=== PATIENT | female | born 1940 | race Caucasian/White ===

== ENCOUNTER 2017-12-01 23:03 | Emergency (ER) | payer MEDICARE, BC ==
[~2017-12-01] VITALS: Ht 152.4 cm; Wt 59.0 kg
--- NOTE | 2017-12-01 23:14 | Emergency Room Report ---
History of Present Illness General Chief Complaint: Lower Extremity Injury Source: Patient, EMS Present Illness HPI This a 76-year-old female with multiple medical problem including CVA, breast cancer, high blood pressure. She presents with chief complaint of right leg pain status post fall. She was walking on the carpet and slipped and fell onto the right side. Unable to get up. Unable to bear weight. Pain is 10 out of 10. Per EMS there is deformity. No nausea no vomiting. No head injury. No syncopal episode. This was mechanical fall. Worse with movement. Better with rest. Allergies: Coded Allergies: CIPROFLOXACIN (Verified Allergy, Unknown, 12/01/17) Patient History Past Medical History: see triage record, old chart reviewed Past Surgical History: other Pertinent Family History: none Social History: Denies: smoking Now: No Immunizations: other Reviewed Nursing Documentation: PMH: Agreed; PSxH: Agreed Nursing Documentation-PMH Past Medical History: No History, Except For Hx Asthma: Yes Hx Cerebrovascular Accident: Yes Review of Systems Eye: Denies: eye pain, blurred vision ENT: Denies: ear pain, nose congestion, throat swelling Respiratory: Denies: cough, shortness of breath Cardiovascular: Denies: chest pain, palpitations Gastrointestinal: Denies: abdominal pain, diarrhea, nausea, vomiting Musculoskeletal: Reports: joint pain, joint swelling, muscle pain; Denies: back pain Skin: Denies: rash Neurological: Denies: headache, numbness Endocrine: Denies: increased thirst, increased urine Hematologic/Lymphatic: Denies: easy bruising All Other Systems: negative except mentioned in HPI Physical Exam Vital Signs Date Time Temp Pulse Resp B/P (MAP) Pulse Ox O2 Delivery O2 Flow Rate FiO2 12/01/17 23:07 98.0 70 16 117/65 98 Room Air 98.1 vitals normal Sp02 EP Interpretation: reviewed, normal General Appearance: well appearing, no apparent distress, alert Head: normocephalic, atraumatic Eyes: bilateral eye PERRL, bilateral eye EOMI ENT: hearing grossly normal, normal pharynx Neck: full range of motion, supple, no meningismus Respiratory: chest non-tender, lungs clear, normal breath sounds Cardiovascular #1: regular rate, rhythm, no murmur Gastrointestinal: normal bowel sounds, non tender, no mass, no organomegaly, no bruit, non-distended Musculoskeletal: back normal, other - Right femur with deformity to the proximal and midshaft. There is edema to the thigh. Knee is nontender. Ankle nontender. Pulses normal. Neurologic: alert, oriented x3 Psychiatric: mood/affect normal Skin: warm/dry Procedures Splinting Splinting : Consent: Verbal Location: right femur Hand-Made Type: plaster Splint: posterior long Pre-Proc Neuro Vasc Exam: normal Post-Proc Neuro Vasc Exam: normal Patient Tolerated: Well Complications: None Medical Decision Making Diagnostic Impression: Primary Impression: Right femoral shaft fracture Qualified Codes: S72.351A - Displaced comminuted fracture of shaft of right femur, initial encounter for closed fracture Additional Impressions: UTI (urinary tract infection) Qualified Codes: N30.00 - Acute cystitis without hematuria CKD (chronic kidney disease) Qualified Codes: N18.9 - Chronic kidney disease, unspecified ER Course Patient presents with a fall with proximal femur fracture. She will need surgery. Worisome for potential pathological fracture. Patient is otherwise stable with well pain controlled. I discussed the case with Dr. Brina Flores who is out of town. She asked that I called the [facility] for admission. I spoke with Dr. Casa Farah who accepted the patient for transfer to [facility]. Lab Results Impression labs unremarkable EKG Diagnostic Results Rate: normal Rhythm: NSR ST Segments: no acute changes Rhythm Strip Diag. Results Rhythm Strip Time: 01:21 EP Interpretation: yes Rate: 66 Rhythm: NSR, no PVC's, no ectopy Chest X-Ray Diagnostic Results Chest X-Ray Diagnostic Results : Chest X-Ray Ordered: Yes # of Views/Limited/Complete: 1 View Indication: Shortness of Breath EP Interpretation: Yes Interpretation: no effusion, no pneumothorax, no acute cardiopulmonary disease, other - atelectasis left lower lower lobe Impression: Other - Atelectasis Electronically Signed by: Eric Rowe MD Other X-Ray Diagnostic Results Other X-Ray Diagnostic Results : X-Ray ordered: right femur x-rays # of Views/Limited Vs Complete: 2 View Indication: Pain EP Interpretation: Yes Interpretation: no dislocation, no soft tissue swelling, other - displaced prox femur frx. Impression: Other - Femur frx Electronically Signed by: Eric Rowe MD Last Vital Signs Date Time Temp Pulse Resp B/P (MAP) Pulse Ox O2 Delivery O2 Flow Rate FiO2 10/9/18 23:07 98.0 70 16 117/65 98 Room Air 98.1 Status: improved Disposition: XFER SHT-TRM HOSP Condition: Stable Eric Rowe MD Dec 01, 2017 23:13
[2017-12-01] MEDS ORDERED: HYDROmorphone 1mg/ml Carpuject ONE (23:15)
[2017-12-01] MEDS ORDERED: HYDROmorphone 1mg/ml Carpuject IVP ONE (23:15)
[2017-12-01 23:36] LABS: BASOPHILS % (AUTO) 1.5 % (0.0-2.0); EOSINOPHILS % (AUTO) 5.3 % (0.0-3.0); HEMATOCRIT 37.1 % (37.0-47.0); HEMOGLOBIN 12.6 G/DL (12.0-16.0); LYMPHOCYTES % (AUTO) 30.6 % (20.0-45.0); MEAN CORPUSCULAR VOLUME 87 FL (80-99); MONOCYTES % (AUTO) 9.4 % (1.0-10.0); NEUTROPHILS % (AUTO) 53.1 % (45.0-75.0); PLATELET COUNT 211 K/UL (150-450); RED BLOOD COUNT 4.27 M/UL (4.20-5.40); RED CELL DISTRIBUTION WIDTH 13.7 % (11.6-14.8)
[2017-12-01 23:56] LABS: APPEARANCE,URINE CLEAR; BILIRUBIN, URINE 2+ (NEGATIVE); GLUCOSE, URINE (UA) NEGATIVE (NEGATIVE); KETONES,URINE NEGATIVE (NEGATIVE); LEUKOCYTE ESTERASE ,URINE 1+ (NEGATIVE); PH,URINE 6 (4.5-8.0); PROTEIN,URINE NEGATIVE (NEGATIVE); UROBILINOGEN,URINE 4 MG/DL (0.0-1.0)
[2017-12-02] MEDS ORDERED: VITAMIN D400 INTLU ORAL (00:01)
[2017-12-02] MEDS ORDERED: LORAZEPAM0.5 MG ORAL (00:01)
[2017-12-02] MEDS ORDERED: BENICAR5 MG ORAL (00:01)
[2017-12-02] MEDS ORDERED: FORTEO2.4 ML SUBQ ×2 (00:01→02:33)
[2017-12-02] MEDS ORDERED: VALIUM2 MG ORAL ×2 (00:01→02:33)
[2017-12-02] MEDS ORDERED: [UNRECOGNIZED DRUG - OTHER] TP (00:01)
[2017-12-02] MEDS ORDERED: ANTARA30 MG PO (00:01)
[2017-12-02] MEDS ORDERED: CRESTOR10 M2 ORAL ×2 (00:01→02:33)
[2017-12-02] MEDS ORDERED: ATENOLOL25 MG ORAL (00:01)
[2017-12-02] MEDS ORDERED: SYMBICORT 16010.2 G1 IH (00:01)
[2017-12-02] MEDS ORDERED: PAMELOR25 MG ORAL ×2 (00:01)
[2017-12-02] MEDS ORDERED: CALCIUM500 M3 PO (00:01)
[2017-12-02 00:04] VITALS: BP 138/95
[2017-12-02 00:07] LABS: COLOR,URINE YELLOW; NITRITE,URINE NEGATIVE (NEGATIVE)
[2017-12-02] MEDS ORDERED: cefTRIAXone 1 GM in NS 55 ML IVPB ONE (00:30)
[2017-12-02 01:00] LABS: ANION GAP 7 mmol/L (5-15); BLOOD UREA NITROGEN 43 mg/dL (7-18); CALCIUM 8.4 MG/DL (8.5-10.1); CARBON DIOXIDE 25 MMOL/L (21-32); CHLORIDE 108 MMOL/L (98-107); CREATININE 1.4 MG/DL (0.55-1.30); POTASSIUM 5.1 MMOL/L (3.5-5.1); SODIUM 140 MMOL/L (136-145)
[2017-12-02 01:05] LABS: ALANINE AMINOTRANSFERASE 35 U/L (12-78); ALBUMIN 3.3 G/DL (3.4-5.0); ALBUMIN/GLOBULIN RATIO 1.1 (1.0-2.7); ALKALINE PHOSPHATASE 45 U/L (46-116); ASPARTATE AMINO TRANSFERASE 47 U/L (15-37); BILIRUBIN,TOTAL 0.3 MG/DL (0.2-1.0)
[2017-12-02] MEDS ORDERED: Morphine Sulfate 4mg/ml Inj (IV USE ONLY) ONE (01:09)
[2017-12-02] MEDS ORDERED: Morphine Sulfate 4mg/ml Inj (IV USE ONLY) IVP ONE (01:15)
[2017-12-02 01:52] VITALS: BP 116/67
[2017-12-02] MEDS ORDERED: B-125000 MC1 PO (02:33)
[2017-12-02] MEDS ORDERED: vit d3 (02:33)
[2017-12-02] MEDS ORDERED: COQ-10100 M1 PO (02:33)
[2017-12-02] MEDS ORDERED: PRENATAL FORMU1 EAC4 PO (02:33)
[2017-12-02] MEDS ORDERED: ZANTAC150 MG ORAL (02:33)
[2017-12-02] MEDS ORDERED: FOLIC ACID1 MG ORAL (02:33)
[2017-12-02] MEDS ORDERED: CALCIUM CITRAT250 M1 PO (02:33)
[2017-12-02] MEDS ORDERED: L-CARNITINE500 M1 PO (02:33)
[2017-12-02] MEDS ORDERED: ALLOPURINOL300 M1 ORAL (02:33)
[2017-12-02] MEDS ORDERED: ATENOLOL50 MG ORAL (02:33)
[2017-12-02] MEDS ORDERED: ATIVAN0.5 MG ORAL (02:33)
[2017-12-02] MEDS ORDERED: FIBRICOR105 MG PO (02:33)
[2017-12-02 04:23] VITALS: BP 102/58
[2017-12-02 05:00] VITALS: BP 104/60
[2017-12-02 05:05] VITALS: BP 104/60
--- NOTE | 2017-12-02 12:05 | Diagnostic Imaging Report ---
Indication: Pain Thigh pain Findings: 2 views of the right femur were obtained. There is acute fracture of the right humeral shaft with overlapping fracture fragments moderate displacement. IMPRESSION: Acute fracture of the right proximal femoral shaft
--- NOTE | 2017-12-02 12:05 | Diagnostic Imaging Report ---
Indication: Trauma and chest pain. Comparison: 09/26/2005 A single view chest radiograph was obtained. Findings: Cardiomediastinal appearance is within normal limits for age. There is minimal left basal atelectasis. Pulmonary vascularity is appropriate. The diaphragmatic contour is smooth and costophrenic angles are sharp. No pleural effusions are identified. The bones are unremarkable. Impression: No acute findings
--- NOTE | 2017-12-02 15:13 | Cardiology Report ---
APPROVED REPORT EKG Measurement Heart [id number] Normal sinus rhythm Low voltage QRS Borderline ECG
== END 2017-12-02 05:10 | disposition short-term general hospital (02) ==
LOC: EDBD 23:03 → EMR 23:13
DX: S72.301A Unspecified fracture of shaft of right femur, initial encounter for closed fracture (principal); W01.0XXA Fall on same level from slipping, tripping and stumbling without subsequent striking against object, initial encounter; Y92.9 Unspecified place or not applicable; N39.0 Urinary tract infection, site not specified; J45.909 Unspecified asthma, uncomplicated; N18.9 Chronic kidney disease, unspecified; Z86.73 Personal history of transient ischemic attack (TIA), and cerebral infarction without residual deficits
CPT/HCPCS: 29505; 36415; 71045; 73552; 80053; 81001; 84484; 85025; 85610; 85730; 86850; 86870; 86900; 86901; 87086; 93005; 96361; 96365; 96375; 96376; 99285; J0696; J1170; J2270; J2405